=== PATIENT | male | born 1980 | race Caucasian/White ===

== ENCOUNTER 2020-05-26 03:13 | Emergency (ER) | payer SELFPAY | END 2020-05-26 03:28 | disposition left against medical advice (07) | LOC: DL.ED 03:13 | DX: Z53.21 Procedure and treatment not carried out due to patient leaving prior to being seen by health care provider (principal) ==

== ENCOUNTER 2020-05-26 12:42 | Emergency (ER) | payer SELFPAY ==
[2020-05-26] MEDS ORDERED: LORazepam 1 MG Tab PO ONE (13:13)
--- NOTE | 2020-05-26 13:13 | EDM.PDOC ---
ED HPI GENERAL MEDICAL PROBLEM - General Stated Complaint: CHEST PAINS Time Seen by Provider: 05/26/20 12:56 Source of Information: Reports: Patient History Limitations: Reports: No Limitations - History of Present Illness INITIAL COMMENTS - FREE TEXT/NARRATIVE: This 39 yo male patient reports to the ED due to left upper anterior chest pain with pain radiating down his left arm. The patient reports he has been under increased stress due to moving to [place] from [place]. The patient reports he just got to [place] last night after driving and after unloading most of a 26 foot moving van, he had an episode of syncope. The patient reports he is very anxious and has a history of anxiety. The patient reports he currently has pain to the left chest, but believes it is from stress and anxiet y. The patient reports he has 6 children (14 - 22 years old) and his would made him come to the ED to be seen. Onset: Unknown/Unsure Duration: Day(s):, Intermittent Location: Reports: Chest (left upper anterior) Quality: Reports: Ache, Dull Severity: Moderate Improves with: Reports: None Worsens with: Reports: None Context: Reports: Other Associated Symptoms: Reports: No Other Symptoms Right Chest Pain Score (Numeric/FACES): 6 - Related Data Allergies Allergy/AdvReac Type Severity Reaction Status Date / Time No Known Allergies Allergy Verified 05/26/20 12:57 Home Meds: Home Meds ALPRAZolam [Alprazolam] 0.5 mg PO ASDIRECTED 05/26/20 [History] Past Medical History - Past Health History Medical/Surgical History: Denies Medical/Surgical History Psychiatric History: Reports: Anxiety Social & Family History - Tobacco Use Tobacco Use Status *Q: Current Every Day Tobacco User Years of Tobacco use: 24 Packs/Tins Daily: 1 - Caffeine Use Caffeine Use: Reports: Coffee - Recreational Drug Use Recreational Drug Use: No ED ROS GENERAL - Review of Systems Review Of Systems: Comprehensive ROS is negative, except as noted in HPI. ED EXAM, GENERAL - Physical Exam Exam: See Below Exam Limited By: No Limitations General Appearance: Alert, WD/WN, Anxious, Thin Eye Exam: Bilateral Eye: EOMI, Normal Inspection, PERRL Ears: Normal External Exam, Normal Canal, Hearing Grossly Normal, Normal TMs Nose: Normal Inspection, Normal Mucosa, No Blood Throat/Mouth: Normal Inspection, Normal Lips, Normal Teeth, Normal Gums, Normal Oropharynx, Normal Voice, No Airway Compromise Head: Atraumatic, Normocephalic Neck: Normal Inspection, Supple, Non-Tender, Full Range of Motion Respiratory/Chest: No Respiratory Distress, Lungs Clear, Normal Breath Sounds, No Accessory Muscle Use, Chest Non-Tender Cardiovascular: Normal Peripheral Pulses, Regular Rate, Rhythm, No Edema, No Gallop, No JVD, No Murmur, No Rub GI/Abdominal: Normal Bowel Sounds, Soft, Non-Tender, No Organomegaly, No Distention, No Abnormal Bruit, No Mass (Male) Exam: Deferred Rectal (Males) Exam: Deferred Back Exam: Normal Inspection, Full Range of Motion, NT Extremities: Normal Inspection, Normal Range of Motion, Non-Tender, Normal Capillary Refill, No Pedal Edema Neurological: Alert, Oriented, CN II-XII Intact, Normal Cognition, Normal Gait, Normal Reflexes, No Motor/Sensory Deficits Psychiatric: Normal Affect, Normal Mood Skin Exam: Warm, Dry, Intact, Normal Color, No Rash Lymphatic: No Adenopathy #1 Interpretation EKG Date: 05/26/20 Time: 12:49 Rhythm: NSR Rate (Beats/Min): 78 [place]: Normal P-Wave: Present QRS: Normal ST-T: Normal QT: Normal Comparison: NA - No Prior EKG Course - Vital Signs Last Recorded V/S: Last Vital Signs Temp 37.0 C 05/26/20 12:54 Pulse 90 05/26/20 12:54 Resp 12 05/26/20 12:54 BP 125/76 05/26/20 12:54 Pulse Ox 100 05/26/20 12:54 - Orders/Labs/Meds Orders: Active Orders 24 hr Category Date Time Status EKG Documentation Completion [RC] STAT Care 05/26/20 12:45 Active Labs: Laboratory Tests 05/26/20 05/26/20 05/26/20 Range/Units 12:50 12:50 12:50 WBC 13.1 H (5.0-10.0) 10^3/uL RBC 5.04 (4.6-6.2) 10^6/uL Hgb 14.5 (14.0-18.0) g/dL Hct 43.3 (40.0-54.0) % MCV 85.9 (80-100) fL MCH 28.8 (27.0-34.0) pg MCHC 33.5 (33.0-35.0) g/dL Plt Count 355 (150-450) 10^3/uL Neut % (Auto) 79.7 H (42.2-75.2) % Lymph % (Auto) 13.4 L (20.5-50.1) % Page % (Auto) 5.3 (2-8) % Eos % (Auto) 1.1 (1.0-3.0) % Baso % (Auto) 0.5 (0.0-1.0) % PT 11.0 (9.0-12.0) SEC INR 1.1 (0.9-1.2) D-Dimer, Quantitative < 100 (0-400) ng/mL Sodium 142 (136-145) mmol/L Potassium 3.4 L (3.5-5.1) mmol/L Chloride 102 (98-107) mmol/L Carbon Dioxide 27 (21-32) mmol/L Anion Gap 16.4 H (7-13) mEq/L BUN 9 (7-18) mg/dL Creatinine 0.92 (0.70-1.30) mg/dL Est Cr Clr Drug Dosing 112.99 mL/min Estimated GFR (MDRD) > 60 BUN/Creatinine Ratio 9.8 (No establ ref range) Glucose 96 (70-99) mg/dL Lactic Acid (0.4-2.0) mmol/L Calcium 9.1 (8.5-10.1) mg/dL Total Bilirubin 0.5 (0.2-1.0) mg/dL AST 21 (15-37) U/L ALT 30 (16-63) U/L Alkaline Phosphatase 66 (46-116) U/L Troponin I < 0.017 (0.000-0.056) ng/mL Total Protein 7.6 (6.4-8.2) g/dL Albumin 4.3 (3.4-5.0) g/dL Globulin 3.3 Albumin/Globulin Ratio 1.3 05/26/20 Range/Units 12:50 WBC (5.0-10.0) 10^3/uL RBC (4.6-6.2) 10^6/uL Hgb (14.0-18.0) g/dL Hct (40.0-54.0) % MCV (80-100) fL MCH (27.0-34.0) pg MCHC (33.0-35.0) g/dL Plt Count (150-450) 10^3/uL Neut % (Auto) (42.2-75.2) % Lymph % (Auto) (20.5-50.1) % Page % (Auto) (2-8) % Eos % (Auto) (1.0-3.0) % Baso % (Auto) (0.0-1.0) % PT (9.0-12.0) SEC INR (0.9-1.2) D-Dimer, Quantitative (0-400) ng/mL Sodium (136-145) mmol/L Potassium (3.5-5.1) mmol/L Chloride (98-107) mmol/L Carbon Dioxide (21-32) mmol/L Anion Gap (7-13) mEq/L BUN (7-18) mg/dL Creatinine (0.70-1.30) mg/dL Est Cr Clr Drug Dosing mL/min Estimated GFR (MDRD) BUN/Creatinine Ratio (No establ ref range) Glucose (70-99) mg/dL Lactic Acid 0.8 (0.4-2.0) mmol/L Calcium (8.5-10.1) mg/dL Total Bilirubin (0.2-1.0) mg/dL AST (15-37) U/L ALT (16-63) U/L Alkaline Phosphatase (46-116) U/L Troponin I (0.000-0.056) ng/mL Total Protein (6.4-8.2) g/dL Albumin (3.4-5.0) g/dL Globulin Albumin/Globulin Ratio Meds: Medications Discontinued Medications Generic Name Dose Route Start Last Admin Trade Name Freq PRN Reason Stop Dose Admin Lorazepam 1 mg 05/26/20 13:13 05/26/20 13:19 Lorazepam 1 Mg Tab PO 05/26/20 13:14 1 mg ONETIME ONE Administration - Re-Assessments/Exams Free Text/Narrative Re-Assessment/Exam: 05/26/20 13:46 The patient did leave the ED prior to receiving lab and x-ray results. The patient was located in the parking lot and encouraged to return to the ED for his results and to remove his IV. Departure - Departure Time of Disposition: 13:43 Disposition: Home, Self-Care 01 Condition: Fair Clinical Impression: Nonspecific chest pain, Anxiety, Stress Instructions: Nonspecific Chest Pain, Adult, [id number], Managing Anxiety, Adult Forms: ED Department Discharge Care Plan Goals: The patient was advised of the examination, lab and x-ray results during the visit. The patient was encouraged to establish a primary care provider. If the patient has any additional symptoms or concerns, the patient should either return to the emergency department or visit his primary care facility. Sepsis Event Note (ED) - Evaluation Sepsis Screening Result: No Definite Risk - Focused Exam Vital Signs: Vital Signs Temp Pulse Resp BP Pulse Ox 05/26/20 12:54 37.0 C 90 12 125/76 100 - My Orders Last 24 Hours: My Active Orders 05/26/20 12:45 EKG Documentation Completion [RC] STAT - Assessment/Plan Last 24 Hours: My Active Orders 05/26/20 12:45 EKG Documentation Completion [RC] STAT
[2020-05-26 13:17] LABS: ANION GAP 16.4 mEq/L (7-13); CHLORIDE,CL 102 mmol/L (98-107); SODIUM,NA 142 mmol/L (136-145)
--- NOTE | 2020-05-26 13:30 | CR ---
EXAMINATION: Chest 1V Frontal SEX: Male AGE: 39 years CLINICAL HISTORY: 39-year-old male chest pain. No comparison films immediately available at this institution. Interpretation: Mild scoliosis and early arthritic changes (hypertrophic marginal spondylosis) dorsal spine. Cardiac monitors. Normal cardiac silhouette (size and configuration). No pulmonary vascular congestion, cephalization of flow, alveolar edema or dependent pleural fluid accumulation (no pleural effusions). No lung mass, hilar lymphadenopathy or alveolar consolidation. No peripheral "groundglass" interstitial lung densities. No pneumothorax or pneumomediastinum. Midline tracheal bronchial airway and AP bony thorax unremarkable. CONCLUSION: No acute cardiopulmonary abnormality.
== END 2020-05-26 13:59 | disposition home or self-care (01) ==
LOC: DL.ED 12:42
DX: F41.9 Anxiety disorder, unspecified (principal); F43.9 Reaction to severe stress, unspecified; Z72.0 Tobacco use
CPT/HCPCS: 36415; 71045; 80053; 83605; 84484; 85025; 85379; 85610; 93005; 93010; 99284; 99285-25; A9270-GY

== ENCOUNTER 2020-06-12 22:54 | Emergency (ER) | payer SELFPAY ==
--- NOTE | 2020-06-13 01:05 | EDM.PDOC ---
ED HPI GENERAL MEDICAL PROBLEM - General Chief Complaint: General Stated Complaint: CHEST PAIN AND STRESS Time Seen by Provider: 06/13/20 00:01 Source of Information: Reports: Patient History Limitations: Reports: Combative/Threatening - History of Present Illness INITIAL COMMENTS - FREE TEXT/NARRATIVE: Patient comes emergency department today with complaints of emotional stress. When I enter the room and introduced myself as I typically do and ask him how I can help and the patient responds "you can do your fucking job and get my daughter the help that she needs". This patient was in the emergency department earlier today with his daughter. There is quite the parent-child disconnect and stress. The child is identified as male although she is a biological female. S he struggles at home with being accepted and today made some suicidal statements to some people at school. This patient's daughter was evaluated and determined no hospitalization or risk was identified and she was discharged home. They got in a verbal altercation on the way home. The child tried to put the car in park while they were driving and he feels that this was an act trying to harm him or herself. He feels that we are not doing what we can for her. He is going to lizette every person in this facility until he gets what he wants. He is going to lizette the dispatchers the police the nursing staff and every person has come in contact with him today because he feels like we are not doing her job. It is difficult for me to ascertain his medical complaints as he constantly is threatening litigation and threatening verbally the staff here. I attempt to do a review of systems to include respiratory cardiovascular abdominal neuro behavioral he refuses to answer any of these questions and tells me to "do my fucking job and help his daughter". He refuses to answer any review of systems he also refuses to allow physical exam. He is verbally abusive confrontational and threatening. While i was attempting to complete my ROS HPI and physical exam the patient got in my face and I felt threatened with his demeanor. A [facility] deputy who was here for this patients daughter stepped in and attempted to calm the patient. He refused medical care. He refused to allow physical exam. He then chose to leave on his own and did not want to be seen. Chest Pain Score (Numeric/FACES): 5 - Related Data Allergies Allergy/AdvReac Type Severity Reaction Status Date / Time No Known Allergies Allergy Verified 05/26/20 12:57 Home Meds: Home Meds ALPRAZolam [Alprazolam] 0.5 mg PO ASDIRECTED 05/26/20 [History] Past Medical History - Past Health History Medical/Surgical History: Denies Medical/Surgical History Psychiatric History: Reports: Anxiety Social & Family History - Family History Family Medical History: No Pertinent Family History - Tobacco Use Tobacco Use Status *Q: Current Status Unknown Second Hand Smoke Exposure: Yes - Caffeine Use Caffeine Use: Reports: Other Other Caffeine Use: refused to answer - Recreational Drug Use Recreational Drug Use Frequency: Patient Refuses To Answer ED ROS GENERAL - Review of Systems Review Of Systems: Unable To Obtain Reason Not Obtained: Pt refused to answer questions. ED EXAM, GENERAL - Physical Exam Exam: See Below Free Text/Narrative:: Physical exam is unable to be completed as the patient refuses exam and with is threatening behavior I fear for my safety with this patient. He does not appear psychotic, he is not confused he appears in no distress and refuses to be evaluated. Exam Limited By: Combative/Threatening General Appearance: Alert, WD/WN, Anxious Eye Exam: Bilateral Eye: EOMI Ears: Normal External Exam Nose: Normal Inspection Head: Normocephalic Respiratory/Chest: No Respiratory Distress Extremities: Normal Inspection Neurological: Alert, Oriented, Normal Cognition, Normal Gait, No Motor/Sensory Deficits Psychiatric: Anxious (aggresive confuntational no confusion or delusions or psychosis. ) Skin Exam: Normal Color, No Rash Course - Vital Signs Last Recorded V/S: Last Vital Signs Temp 97.8 F 06/13/20 00:14 Pulse 84 06/13/20 00:14 Resp 19 06/13/20 00:14 BP 132/76 06/13/20 00:14 Pulse Ox 99 06/13/20 00:14 - Re-Assessments/Exams Free Text/Narrative Re-Assessment/Exam: 06/13/20 01:08 The patient refused any exam and refused to answer questions. He continually is threatening verbally towards the staff. He chose to not be seen and left the ER> I was unable to complete an AMA assessment or discussion with this patient as he left and refused to have a discussion with myself or any of the staff. Departure - Departure Time of Disposition: 00:40 Disposition: Eloped 07 Clinical Impression: Anxiety - Discharge Information Forms: ED Department Discharge Additional Instructions: Pt refused any exam and refused care. Eloped and left on his own prior to any AMA discussion. Sepsis Event Note (ED) - Evaluation Sepsis Screening Result: No Definite Risk - Focused Exam Vital Signs: Vital Signs Temp Pulse Resp BP Pulse Ox 06/13/20 00:14 97.8 F 84 19 132/76 99
== END 2020-06-13 00:25 | disposition left against medical advice (07) ==
LOC: DL.ED 22:54
DX: F41.9 Anxiety disorder, unspecified (principal); Z77.22 Contact with and (suspected) exposure to environmental tobacco smoke (acute) (chronic)
CPT/HCPCS: 99283